=== PATIENT | male | born 1935 | race Caucasian/White ===

== ENCOUNTER 2017-10-03 23:36 | Emergency (ER) | payer OTHER ==
[~2017-10-03] VITALS: Ht 182.9 cm; Wt 93.0 kg
[~2017-10-03 23:36] MED LIST: COUM3TAB; DIGO0.253; FURO1TAB93 PO; GLUCTAB PO; LISI-357 PO; MAGN400T PO; METO25 PO; SYNT25TA; TESTOSTERONE CREAM; VITA50LO SL
[2017-10-04] VITALS: BP 130/70; PULSE 96; RESP 18; TEMP 97.5; O2SAT 99
--- NOTE | 2017-10-04 00:13 | PD ---
HPI Chief Complaint: GI Complaint Time Seen by Provider: 00:12 Travel History International Travel<30 days: No Contact w/Intl Traveler<30days: No Traveled to known affect area: No History of Present Illness HPI The patient is an 82-year-old male that has nausea, vomiting and diarrhea beginning around 9 PM tonight. He has not had any cough. He has not had any fever. He denies any abdominal pain. He takes warfarin for atrial fibrillation. He also is a diabetic and takes metformin. He also takes digoxin for rate control. PFSH Past Medical History Hx Anticoagulant Therapy: No Arthritis: Yes Asthma: No Atrial Fibrillation: Yes Autoimmune Disease: No Heart Rhythm Problems: Yes (A FIB) Cancer: No Cardiovascular Problems: No High Cholesterol: Yes Chemotherapy: No Chest Pain: Yes (SINCE 5 PM) Congestive Heart Failure: Yes (UNSURE OF HISTORY PER PT AND ) COPD: No Cerebrovascular Accident: No Diabetes: No Diminished Hearing: No Endocrine: Yes Gastrointestinal Disorders: Yes GERD: Yes Genitourinary: No Hiatal Hernia: No Hypertension: Yes Immune Disorder: No Kidney Stones: No Musculoskeletal: Yes Neurologic: Yes Psychiatric: No Reproductive: No Respiratory: No Migraines: No Myocardial Infarction: No Radiation Therapy: No Renal Failure: No Seizures: No Sickle Cell Disease: No Sleep Apnea: No Thyroid Disease: Yes Ulcer: Yes Past Surgical History Abdominal Surgery: Yes (LAP CHOL 1991) AICD: No Arteriovenous Shunt: No Cardiac Surgery: Yes (2005) Cholecystectomy: Yes Endocrine Surgery: Yes (80?REMOVED 1964 THYROID) Eye Surgery: Yes (CATARACT REMOVED RT 2 YRS AGO) Insulin Pump: No Joint Replacement: No Oral Surgery: Yes (TEETH 7 YRS AGO) Pacemaker: No Other Surgery: Yes Social History Alcohol Use: No Tobacco Use: No Substance Use: No Allergies-Medications (Allergen,Severity, Reaction): Coded Allergies: No Known Allergies (Verified Adverse Reaction, Unknown, 10/04/17) Reported Meds & Prescriptions Reported Meds & Active Scripts Active Reported Magnesium Citrate 100 Mg Tab 500 Mg PO DAILY PRN Vitamin C (Ascorbic Acid) 250 Mg Tab 1,000 Mg PO DAILY Tylenol Extra Strength (Acetaminophen) 500 Mg Tablet 2 Tab PO BID Potassium Chloride ER (Potassium Chloride) 8 Meq Tab 5 Meq PO HS Coumadin (Warfarin) 5 Mg Tab 5 Mg PO MON, WED, FRI, SAT Warfarin 2.5 Mg Tab 2.5 Mg PO SUN, TUES, THURS Lisinopril 5 Mg Tab 40 Mg PO DAILY Levothyroxine (Levothyroxine Sodium) 25 Mcg Tab 175 Mcg PO DAILY Digoxin 0.25 Mg Tab 0.25 Mg PO DAILY Vitamin B-12 (Cyanocobalamin) 500 Mcg Tab 500 Mcg PO DAILY Review of Systems Except as stated in HPI: all other systems reviewed are Neg Physical Exam Narrative GENERAL: SKIN: Focused skin assessment warm/dry. HEAD: Atraumatic. Normocephalic. EYES: Pupils equal and round. No scleral icterus. No injection or drainage. ENT: No nasal bleeding or discharge. Mucous membranes pink but somewhat dry. NECK: Trachea midline. No JVD. CARDIOVASCULAR: Regular rate and rhythm. No murmur appreciated. RESPIRATORY: No accessory muscle use. Clear to auscultation. Breath sounds equal bilaterally. GASTROINTESTINAL: Abdomen soft, non-tender, nondistended. Hepatic and splenic margins not palpable. MUSCULOSKELETAL: No obvious deformities. No clubbing. No cyanosis. No edema. NEUROLOGICAL: Awake and alert. No obvious cranial nerve deficits. Motor grossly within normal limits. Normal speech. PSYCHIATRIC: Appropriate mood and affect; insight and judgment normal. Data Data Last Documented VS Vital Signs Date Time Temp Pulse Resp B/P (MAP) Pulse Ox O2 Delivery O2 Flow Rate FiO2 10/04/17 01:54 94 16 116/74 (88) 98 Room Air 10/04/17 00:00 97.5 Orders Orders Complete Blood Count With Diff (10/04/17 00:14) Comprehensive Metabolic Panel (10/04/17 00:14) Lipase (10/04/17 00:14) Urinalysis - C+S If Indicated (10/04/17 00:14) Iv Access Insert/Monitor (10/04/17 00:14) Ecg Monitoring (10/04/17 00:14) Oximetry (10/04/17 00:14) Ondansetron Inj (Zofran Inj) (10/04/17 00:15) Sodium Chlor 0.9% 1000 Ml Inj (Ns 1000 M (10/04/17 00:14) Sodium Chloride 0.9% Flush (Ns Flush) (10/04/17 00:15) Digoxin (10/04/17 00:14) Prothrombin Time / Inr (Pt) (10/04/17 00:14) Troponin I (10/04/17 00:14) Sodium Chlor 0.9% 1000 Ml Inj (Ns 1000 M (10/04/17 02:00) Labs Laboratory Tests Test 10/04/17 00:15 10/04/17 01:30 White Blood Count 11.2 TH/MM3 Red Blood Count 4.83 MIL/MM3 Hemoglobin 14.7 GM/DL Hematocrit 45.0 % Mean Corpuscular Volume 93.2 FL Mean Corpuscular Hemoglobin 30.4 PG Mean Corpuscular Hemoglobin Concent 32.6 % Red Cell Distribution Width 13.5 % Platelet Count 224 TH/MM3 Mean Platelet Volume 8.8 FL CBC Comment AUTO DIFF Differential Total Cells Counted 100 Neutrophils % (Manual) 85 % Band Neutrophils % 3 % Lymphocytes % 4 % Monocytes % 5 % Eosinophils % 2 % Basophils % 1 % Neutrophils # (Manual) 9.9 TH/MM3 Differential Comment FINAL DIFF MANUAL Platelet Estimate NORMAL Platelet Morphology Comment NORMAL Prothrombin Time 29.5 SEC Prothromb Time International Ratio 2.9 RATIO Blood Urea Nitrogen 24 MG/DL Creatinine 1.30 MG/DL Random Glucose 186 MG/DL Total Protein 7.9 GM/DL Albumin 3.9 GM/DL Calcium Level 8.8 MG/DL Alkaline Phosphatase 70 U/L Aspartate Amino Transf (AST/SGOT) 22 U/L Alanine Aminotransferase (ALT/SGPT) 31 U/L Total Bilirubin 0.9 MG/DL Sodium Level 136 MEQ/L Potassium Level 3.6 MEQ/L Chloride Level 99 MEQ/L Carbon Dioxide Level 27.2 MEQ/L Anion Gap 10 MEQ/L Estimat Glomerular Filtration Rate 53 ML/MIN Troponin I 0.04 NG/ML Lipase 176 U/L Digoxin Level LESS THAN 0.1 NG/ML Urine Color YELLOW Urine Turbidity CLEAR Urine pH 7.0 Urine Specific [place] 1.019 Urine Protein NEG mg/dL Urine Glucose (UA) NEG mg/dL Urine Ketones 15 mg/dL Urine Occult Blood NEG Urine Nitrite NEG Urine Bilirubin NEG Urine Leukocyte Esterase NEG Urine RBC 0-3 /hpf Urine WBC 0-2 /hpf Microscopic Urinalysis Comment CULT NOT INDICATED MDM Medical Decision Making Medical Screen Exam Complete: Yes Emergency Medical Condition: Yes Medical Record Reviewed: Yes Interpretation(s) The CBC shows a white count of 11,200 but is otherwise normal. The complete metabolic profile shows a BUN of 24, GFR 53, glucose of 186 but is otherwise normal. The troponin I is normal and the anion gap is normal. The digoxin level is less than 0.1 and the lipase is normal. The urinalysis shows 15 ketones but is otherwise normal and culture is not indicated. Differential Diagnosis Viral gastroenteritis, gastritis, electrolyte disorder, dehydration, colitis, bacterial enteritis Narrative Course The patient appears to have a viral gastroenteritis. He also has mild dehydration with the ketones NEG urine and elevated BUN both indicating dehydration. Diagnosis Primary Impression: Viral gastroenteritis Additional Impression: Mild dehydration Additional Instructions: As we discussed, drink clear liquids like Gatorade which replaces not only water but salt. Take the Zofran regularly so that you do not started vomiting. The Zofran is 4 mg tablet every 4-6 hours. Follow-up Thursday with her primary care physician. Med/Other Pt SpecificInfo: Prescription(s) given Scripts Ondansetron (Zofran) 4 Mg Tab 4 MG PO Q6HR Y for NAUSEA OR VOMITING, #28 TAB 0 Refills Prov: Terrence Guzman MD 10/04/17 Disposition: 01 DISCHARGE HOME Condition: Stable Terrence Guzman MD Oct 04, 2017 00:13
[2017-10-04] MEDS ORDERED: SODIUM CHLOR 0.9% 1000 ML INJ 1,000 ML IV SCH (00:14)
[2017-10-04] MEDS ORDERED: ONDANSETRON HCL 4 MG/2 ML VIAL IVP ONE (00:15)
[2017-10-04] MEDS ORDERED: SODIUM CHLORIDE 0.9% FLUSH 10 ML FLUSH IV FLUSH PRN (00:15)
[2017-10-04] MEDS ORDERED: WARF-18 PO (00:28)
[2017-10-04] MEDS ORDERED: LEVO25TA4 PO (00:28)
[2017-10-04] MEDS ORDERED: VITA500T4 PO (00:28)
[2017-10-04] MEDS ORDERED: DIGO0.25 PO (00:28)
[2017-10-04] MEDS ORDERED: LISI-519 PO (00:28)
[2017-10-04] MEDS ORDERED: ALFU10TA2 PO (00:28)
[2017-10-04] MEDS ORDERED: COUM5TAB PO (00:28)
[2017-10-04] MEDS ORDERED: MAGN400T2 PO (00:28)
[2017-10-04] MEDS ORDERED: VITA250T3 PO (00:32)
[2017-10-04] MEDS ORDERED: ACET-822 PO (00:32)
[2017-10-04] MEDS ORDERED: POTA8TAB PO (00:32)
[2017-10-04] MEDS ORDERED: MAGN100T2 PO (00:32)
[2017-10-04 00:36] LABS: HEMOGLOBIN 14.7 GM/DL (13.0-17.0); MEAN CELL VOLUME 93.2 FL (80.0-100.0); MEAN CORPUSCULAR HEMOGLOBIN 30.4 PG (27.0-34.0); MEAN CORPUSCULAR HGB CONC 32.6 % (32.0-36.0); MEAN PLATELET VOLUME 8.8 FL (7.0-11.0); PLATELET COUNT 224 TH/MM3 (150-450); RED BLOOD COUNT 4.83 MIL/MM3 (4.50-5.90); RED CELL DISTRIBUTION WIDTH 13.5 % (11.6-17.2); WHITE BLOOD COUNT 11.2 TH/MM3 (4.0-11.0)
[2017-10-04 00:43] VITALS: PULSE 93
[2017-10-04 01:03] LABS: CHLORIDE 99 MEQ/L (98-107); SODIUM (NA) 136 MEQ/L (136-145)
[2017-10-04 01:07] LABS: CALCIUM 8.8 MG/DL (8.5-10.1)
[2017-10-04 01:08] LABS: ALBUMIN 3.9 GM/DL (3.4-5.0); BICARBONATE 27.2 MEQ/L (21.0-32.0); BLOOD UREA NITROGEN 24 MG/DL (7-18); GLUCOSE,RANDOM 186 MG/DL (74-106); INTERNATIONAL NORMALIZED RATIO 2.9 RATIO; LIPASE 176 U/L (73-393); PROTHROMBIN TIME - PATIENT 29.5 SEC (9.8-11.6)
[2017-10-04 01:11] LABS: ALT (GPT) 31 U/L (12-78); AST (GOT) 22 U/L (15-37); GLOMERULAR FILTRATION RATE 53 ML/MIN (>89)
[2017-10-04 01:12] LABS: TOTAL BILIRUBIN ADULT 0.9 MG/DL (0.2-1.0); TOTAL PROTEIN 7.9 GM/DL (6.4-8.2)
[2017-10-04 01:13] LABS: ALKALINE PHOSPHATASE 70 U/L (45-117)
[2017-10-04 01:16] LABS: TROPONIN I 0.04 NG/ML (0.02-0.05)
[2017-10-04 01:22] LABS: BANDS 3 % (0-6); BASOPHILS 1 % (0-2); LYMPHOCYTES 4 % (9-44); MONOCYTES 5 % (0-8); NEUTROPHIL # MANUAL DIFF 9.9 TH/MM3 (1.8-7.7); POLYS (SEG NEUTROPHILS) 85 % (16-70)
[2017-10-04 01:38] LABS: BILIRUBIN, URINE NEG (NEG); BLOOD, URINE NEG (NEG); GLUCOSE,URINE NEG (NEG); KETONE, URINE 15 mg/dL (NEG); NITRITE,URINE NEG (NEG); URINE LEUKOCYTE ESTERASE NEG (NEG)
[2017-10-04 01:42] LABS: URINE COLOR YELLOW (YELLW/STRAW)
[2017-10-04 01:43] LABS: RBC, URINE 0-3 /hpf (0-3); WBC, URINE 0-2 /hpf (0-5)
[2017-10-04 01:49] LABS: DIGOXIN LESS THAN 0.1 NG/ML (0.8-2.0)
[2017-10-04] MEDS: SODIUM CHLOR 0.9% 1000 ML INJ 1,000 ML IV SCH ×2 (01:53→02:13)
[2017-10-04 01:54] VITALS: BP 116/74; PULSE 94; RESP 16; O2SAT 98
[2017-10-04] MEDS ORDERED: ZOFR4TAB PO (02:11)
== END 2017-10-04 03:10 | disposition home or self-care (01) ==
LOC: PHED 23:36
DX: A08.4 Viral intestinal infection, unspecified (principal); E86.0 Dehydration; R19.7 Diarrhea, unspecified; I48.91 Unspecified atrial fibrillation; E11.9 Type 2 diabetes mellitus without complications; I11.0 Hypertensive heart disease with heart failure; Z79.01 Long term (current) use of anticoagulants
CPT/HCPCS: 80053; 80162; 81001; 83690; 84484; 85007; 85027; 85610; 96361; 96374; 99284; J2405; J7030

== ENCOUNTER 2017-10-31 11:36 | Emergency (ER) | payer OTHER ==
[~2017-10-31] VITALS: Ht 182.9 cm; Wt 96.0 kg
[~2017-10-31 11:36] MED LIST changes: +ACET-822 PO; -COUM3TAB; +COUM5TAB PO; +DIGO0.25 PO; -DIGO0.253; -FURO1TAB93 PO; -GLUCTAB PO; +LEVO25TA4 PO; -LISI-357 PO; +LISI-519 PO; +MAGN100T2 PO; -MAGN400T PO; -METO25 PO; +POTA8TAB PO; -SYNT25TA; -TESTOSTERONE CREAM; +VITA250T3 PO; +VITA500T4 PO; -VITA50LO SL; +WARF-18 PO; +ZOFR4TAB PO
[2017-10-31 12:00] VITALS: BP 168/74; PULSE 54; RESP 16; TEMP 97.9; O2SAT 98
[2017-10-31] MEDS ORDERED: ATOR40TA16 PO (13:09)
--- NOTE | 2017-10-31 13:24 | PD ---
HPI Chief Complaint: Laceration/Skin Injury Time Seen by Provider: 13:12 Travel History International Travel<30 days: No Contact w/Intl Traveler<30days: No Traveled to known affect area: No History of Present Illness HPI 82-year-old male presents to the emergency department for evaluation after he tripped and fell this morning. He states he is walking into a restaurant when he tripped over the rug and fell. He denies hitting his head or any LOC. His at bedside witnessed the fall and states that he did not hit his head. Patient denies any neck pain or back pain. No chest pain or trauma pain. No nausea, vomiting, diarrhea. No hip or pelvic pain. Patient complains of right knee, right elbow, right shoulder, left hand pain. He has a skin tear to the right elbow. Patient is on Coumadin for A. fib. However, he adamantly denies hitting his head. He states he has his INR checked frequently and it was normal. Patient states the pain is worse with ambulation, movement. Pain is relieved with lying still. He has an appointment with orthopedist on Thursday for right shoulder pain. Moderate severity. Current pain is 2/10, 8/10 with movement. Patient states his tetanus immunization is up-to-date. PFSH Past Medical History Hx Anticoagulant Therapy: Yes (WARFARIN) Arthritis: Yes Asthma: No Atrial Fibrillation: Yes Autoimmune Disease: No Heart Rhythm Problems: Yes (A FIB) Cancer: Yes (SKIN) Cardiac Catheterization: Yes Cardiovascular Problems: No High Cholesterol: Yes Chemotherapy: No Chest Pain: Yes Congestive Heart Failure: Yes (PT DENIES) COPD: No Cerebrovascular Accident: No Diabetes: Yes (DIET CONTROLLED NOW) Patient Takes Glucophage: No Diminished Hearing: No Endocrine: Yes Gastrointestinal Disorders: Yes (GALLSTONES) GERD: Yes Genitourinary: No Hiatal Hernia: No Hypertension: Yes Immune Disorder: No Implanted Vascular Access Dvce: Yes Kidney Stones: No Musculoskeletal: Yes Neurologic: Yes Psychiatric: No Reproductive: No Respiratory: No Migraines: No Myocardial Infarction: No Pneumonia: Yes Radiation Therapy: No Renal Failure: No Seizures: No Sickle Cell Disease: No Sleep Apnea: No Thyroid Disease: Yes Ulcer: Yes Tetanus Vaccination: < 5 Years Influenza Vaccination: Yes Past Surgical History Abdominal Surgery: Yes (LAP CHOL 1991) AICD: No Arteriovenous Shunt: No Cardiac Surgery: Yes (2005) Cholecystectomy: Yes Endocrine Surgery: Yes (80?REMOVED 1963 THYROID) Eye Surgery: Yes (LEFT CATARACT) Insulin Pump: No Joint Replacement: Yes (RIGHT KNEE) Oral Surgery: Yes (TOOTH EXTRACTIONS) Pacemaker: No Other Surgery: Yes Social History Alcohol Use: No Tobacco Use: No (QUIT 1957) Substance Use: No Allergies-Medications (Allergen,Severity, Reaction): Coded Allergies: No Known Allergies (Verified Adverse Reaction, Unknown, 10/04/17) Reported Meds & Prescriptions Reported Meds & Active Scripts Active Reported Atorvastatin (Atorvastatin Calcium) 40 Mg Tab 40 Mg PO HS Magnesium Citrate 100 Mg Tab 500 Mg PO DAILY PRN Vitamin C (Ascorbic Acid) 250 Mg Tab 1,000 Mg PO DAILY Tylenol Extra Strength (Acetaminophen) 500 Mg Tablet 2 Tab PO BID Coumadin (Warfarin) 5 Mg Tab 5 Mg PO MON, WED, FRI, SAT Warfarin 2.5 Mg Tab 2.5 Mg PO SUN, TUES, THURS Levothyroxine (Levothyroxine Sodium) 25 Mcg Tab 175 Mcg PO DAILY Vitamin B-12 (Cyanocobalamin) 500 Mcg Tab 500 Mcg PO DAILY Review of Systems Except as stated in HPI: all other systems reviewed are Neg Physical Exam Narrative GENERAL: Well-nourished, well-developed elderly male patient, Afebrile. SKIN: Focused skin assessment warm/dry. Patient has skin tear noted to right dorsal elbow. He also has ecchymosis to right anterior knee and left volar thumb. HEAD: Normocephalic. Atraumatic. EYES: No scleral icterus. No injection or drainage. NECK: Supple, trachea midline. No JVD or lymphadenopathy. CARDIOVASCULAR: Regular rate and rhythm without murmurs, gallops, or rubs. Bilateral radial and pedal pulses are 2+. RESPIRATORY: Breath sounds equal bilaterally. No accessory muscle use. Lungs sounds are clear to auscultation. GASTROINTESTINAL: Abdomen soft, non-tender, nondistended. MUSCULOSKELETAL: No cyanosis, or edema. Patient's tenderness over right anterior knee, reduced flexion due to pain. He has full flexion-extension of right elbow. He is tenderness to palpation over the right shoulder was reduced range of motion. BACK: Nontender without obvious deformity. No CVA tenderness. No midline spinal tenderness. Data Data Last Documented VS Vital Signs Date Time Temp Pulse Resp B/P (MAP) Pulse Ox O2 Delivery O2 Flow Rate FiO2 2/10/18 12:00 97.9 54 16 168/74 (105) 98 Orders Orders Knee, Complete (4vws) (10/31/17 ) Elbow, Complete (4 Vws) (10/31/17 ) Shoulder, Complete (>2vws) (10/31/17 ) Hand, Complete ([id number]) (10/31/17 ) Wound Care (10/31/17 13:18) Splint Or Brace Apply/Monitor (10/31/17 16:06) MDM Medical Decision Making Medical Screen Exam Complete: Yes Emergency Medical Condition: Yes Medical Record Reviewed: Yes Interpretation(s) Last Impressions Shoulder X-Ray 10/31/17 0000 Signed Impressions: Service Date/Time: Tuesday, October 31, 2017 14:43 - CONCLUSION: No acute bony injury. Frantz Esquivel MD Knee X-Ray 10/31/17 0000 Signed Impressions: Service Date/Time: Tuesday, October 31, 2017 14:38 - CONCLUSION: Total knee prosthesis well seated Frantz Esquivel MD Hand X-Ray 10/31/17 0000 Signed Impressions: Service Date/Time: Tuesday, October 31, 2017 14:29 - CONCLUSION: No acute bony injury or dislocation. 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 X-ray of the right knee, right elbow, right shoulder, left hand are ordered and pending. Wound care is completed on skin tear to right elbow. He declines pain medication at this time. X-ray of the right knee shows total knee prosthesis well-seated. X-ray of the right shoulder shows no acute bony injury. X-ray of the right elbow shows no acute bony injury. X-ray of the left hand shows no acute bony injury. Patient is provided Eloy bandage to right knee. He is instructed on proper wound care. He has an orthopedist appointment on Thursday with Dr. Espinosa. He will follow-up. The patient was discharged in stable condition with instructions, including return instructions and follow up instructions. Diagnosis Primary Impression: Skin tear of elbow without complication Qualified Codes: S51.011A - Laceration without foreign body of right elbow, initial encounter Additional Impressions: Knee contusion Qualified Codes: S80.01XA - Contusion of right knee, initial encounter Thumb contusion Qualified Codes: S60.011A - Contusion of right thumb without damage to nail, initial encounter Right shoulder pain Qualified Codes: M25.511 - Pain in right shoulder Referrals: Orthopedist Primary Care Physician Patient Instructions: Contusion in Adults (ED), General Instructions, Skin Tear (ED) Additional Instructions: Keep skin tear clean and dry. Take [id number] Tylenol as needed for mild to moderate pain. Take Spade as instructed as needed for moderate to severe pain. Caution this can make you drowsy so do not drive after taking. Follow-up with orthopedist as already scheduled. Return to the emergency department for any acute worsening of symptoms. Med/Other Pt SpecificInfo: Prescription(s) given Scripts Hydrocodone-Acetaminophen (Spade) 5 Mg-325 Mg Tab 1 TAB PO Q6H Y for PAIN, #8 TAB 0 Refills Prov: Aliya Pineda 10/31/17 Disposition: 01 DISCHARGE HOME Condition: Stable Aliya Pineda Oct 31, 2017 13:24
--- NOTE | 2017-10-31 15:51 | RADRPT ---
EXAM DATE/TIME: 10/31/2017 14:23 [facility] COMPARISON: No previous studies available for comparison. INDICATIONS : Fell, right elbow pain MEDICAL HISTORY : None. SURGICAL HISTORY : Total knee replacement, right. ENCOUNTER: Initial ACUITY: 1 day PAIN SCORE: 8/10 LOCATION: Right elbow FINDINGS: The bony structures are osteopenic or osteoporotic with corticated calcifications posterior to the di stal humerus and a small olecranon spur. There are degenerative changes of the elbow joint. No defini te fracture or dislocation is appreciated. 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 This report was verified electronically.
--- NOTE | 2017-10-31 15:54 | RADRPT ---
EXAM DATE/TIME: 10/31/2017 14:29 [facility] COMPARISON: No previous studies available for comparison. INDICATIONS : Fell, left hand pain MEDICAL HISTORY : None. SURGICAL HISTORY : Total knee replacement, right. Left wrist surgery ENCOUNTER: Initial ACUITY: 1 day PAIN SCORE: 8/10 LOCATION: Left hand FINDINGS: The bony structures are osteopenic or osteoporotic. Osteoarthritic changes are noted of the PIP and P IP joints of the fingers. There is evidence of prior surgery with a circular plate and dorsal to the mid and lateral roll of the carpal bones with screws into these carpal bones apparent fusion. The int erpediculate is essentially absent. There is degenerative change of the first metacarpal multangular articulation. There are vascular calcifications in the radial artery. No acute bony injury dislocatio n noted. CONCLUSION: No acute bony injury or dislocation. Prior surgery as described with osteoarthritis and osteoporo sis or osteopenia Frantz Esquivel MD on October 31, 2017 at 15:49 Board Certified Radiologist. This report was verified electronically.
--- NOTE | 2017-10-31 15:55 | RADRPT ---
EXAM DATE/TIME: 10/31/2017 14:38 [facility] COMPARISON: No previous studies available for comparison. INDICATIONS : Fell , has right knee pain MEDICAL HISTORY : None. SURGICAL HISTORY : Total knee replacement, right. ENCOUNTER: Initial ACUITY: 1 day PAIN SCORE: 8/10 LOCATION: Right knee FINDINGS: Total knee prosthesis is in place well seated. There is no evidence of fracture or dislocation. CONCLUSION: Total knee prosthesis well seated Frantz Esquivel MD on October 31, 2017 at 15:52 Board Certified Radiologist. This report was verified electronically.
--- NOTE | 2017-10-31 15:57 | RADRPT ---
EXAM DATE/TIME: 10/31/2017 14:43 [facility] COMPARISON: No previous studies available for comparison. INDICATIONS : Fell, right shoulder pain, limited ROM MEDICAL HISTORY : None. SURGICAL HISTORY : Total knee replacement, right. ENCOUNTER: Initial ACUITY: 1 day PAIN SCORE: 8/10 LOCATION: Right shoulder FINDINGS: Multiple view examination of the right shoulder demonstrates no evidence of fracture or dislocation. The glenohumeral and acromioclavicular joints are maintained. There is normal range of motion betwe en internal and external rotation. Bony mineralization is normal. Degenerative changes are noted of the a.c. joint minimally the glenohumeral joint. CONCLUSION: No acute bony injury. Frantz Esquivel MD on October 31, 2017 at 15:54 Board Certified Radiologist. This report was verified electronically.
[2017-10-31] MEDS ORDERED: NORC5TAB PO (16:09)
== END 2017-10-31 16:27 | disposition home or self-care (01) ==
LOC: PHED 11:36 → PHEFT 16:27
DX: S51.011A Laceration without foreign body of right elbow, initial encounter (principal); S80.01XA Contusion of right knee, initial encounter; S60.011A Contusion of right thumb without damage to nail, initial encounter; M25.511 Pain in right shoulder; I48.91 Unspecified atrial fibrillation; E11.9 Type 2 diabetes mellitus without complications; I10 Essential (primary) hypertension; W01.0XXA Fall on same level from slipping, tripping and stumbling without subsequent striking against object, initial encounter; Y93.01 Activity, walking, marching and hiking; Y92.511 Restaurant or cafe as the place of occurrence of the external cause; Z79.01 Long term (current) use of anticoagulants
CPT/HCPCS: 73030; 73080; 73130; 73564; 99284

== ENCOUNTER 2018-03-10 16:29 | Emergency (ER) | payer OTHER ==
[~2018-03-10] VITALS: Ht 188 cm; Wt 98.0 kg
[~2018-03-10 16:29] MED LIST changes: +ATOR40TA16 PO; -DIGO0.25 PO; -LISI-519 PO; +NORC5TAB PO; -POTA8TAB PO; -ZOFR4TAB PO
[2018-03-10 16:33] VITALS: BP 156/74; PULSE 70; RESP 16; TEMP 98.5; O2SAT 96
--- NOTE | 2018-03-10 16:51 | PD ---
HPI Chief Complaint: Musculoskeletal Complaint Time Seen by Provider: 16:40 Travel History International Travel<30 days: No Contact w/Intl Traveler<30days: No Traveled to known affect area: No History of Present Illness HPI 82-year-old male presents to the emergency department for evaluation of left ankle pain that has been ongoing for approximately 3 weeks, but worsened today as he was on his feet more. Patient has history of fusion to the left ankle and cannot move the left ankle. Patient states he saw his primary care physician at the [place] approximately 2 weeks ago who told him to follow with a foot doctor. However, he has not yet been able to see the [facility]enter ship. Current pain is 5/10, without radiation, aching and throbbing. Patient denies any known traumatic injury. He has no other symptoms or complaints at this time. Mild severity. PFSH Past Medical History Hx Anticoagulant Therapy: Yes (WARFARIN) Arthritis: Yes Asthma: No Atrial Fibrillation: Yes Autoimmune Disease: No Heart Rhythm Problems: Yes (A FIB) Cancer: Yes (SKIN) Cardiac Catheterization: Yes Cardiovascular Problems: No High Cholesterol: Yes Chemotherapy: No Chest Pain: Yes Congestive Heart Failure: Yes COPD: No Cerebrovascular Accident: No Diabetes: Yes (DIET CONTROLLED NOW) Patient Takes Glucophage: No Diminished Hearing: No Endocrine: Yes Gastrointestinal Disorders: Yes (GALLSTONES) GERD: Yes Genitourinary: No Hiatal Hernia: No Hypertension: Yes Immune Disorder: No Implanted Vascular Access Dvce: Yes Kidney Stones: No Musculoskeletal: Yes Neurologic: Yes Psychiatric: No Reproductive: No Respiratory: No Migraines: No Myocardial Infarction: No Pneumonia: Yes Radiation Therapy: No Renal Failure: No Seizures: No Sickle Cell Disease: No Sleep Apnea: No Thyroid Disease: Yes Ulcer: Yes Influenza Vaccination: Yes ?: Not Past Surgical History Abdominal Surgery: Yes (LAP CHOL 1991) AICD: No Arteriovenous Shunt: No Cardiac Surgery: Yes (2005) Cholecystectomy: Yes Endocrine Surgery: Yes (REMOVED THYROID) Eye Surgery: Yes (CATARACT) Insulin Pump: No Joint Replacement: Yes (RIGHT KNEE) Oral Surgery: Yes (TOOTH EXTRACTIONS) Pacemaker: No Other Surgery: Yes Social History Alcohol Use: No Tobacco Use: No (QUIT 1957) Substance Use: No Allergies-Medications (Allergen,Severity, Reaction): Coded Allergies: No Known Allergies (Verified Adverse Reaction, Unknown, 03/10/18) Reported Meds & Prescriptions Reported Meds & Active Scripts Active [place] (Hydrocodone-Acetaminophen) 5 Mg-325 Mg Tab 1 Tab PO Q6H PRN Reported Atorvastatin (Atorvastatin Calcium) 40 Mg Tab 40 Mg PO HS Magnesium Citrate 100 Mg Tab 500 Mg PO DAILY PRN Vitamin C (Ascorbic Acid) 250 Mg Tab 1,000 Mg PO DAILY Tylenol Extra Strength (Acetaminophen) 500 Mg Tablet 2 Tab PO BID Coumadin (Warfarin) 5 Mg Tab 5 Mg PO MON, WED, FRI, SAT Warfarin 2.5 Mg Tab 2.5 Mg PO SUN, , THURS Levothyroxine (Levothyroxine Sodium) 25 Mcg Tab 175 Mcg PO DAILY Vitamin B-12 (Cyanocobalamin) 500 Mcg Tab 500 Mcg PO DAILY Review of Systems Except as stated in HPI: all other systems reviewed are Neg Physical Exam Narrative GENERAL: Well-nourished, well-developed elderly male patient, afebrile. SKIN: Focused skin assessment warm/dry. No erythema or warmth over left ankle. HEAD: Normocephalic. Atraumatic. EYES: No scleral icterus. No injection or drainage. NECK: Supple, trachea midline. No JVD or lymphadenopathy. CARDIOVASCULAR: Left pedal pulse is 2+. RESPIRATORY: No accessory muscle use. MUSCULOSKELETAL: No cyanosis. Patient has tenderness over left lower lateral ankle. Patient has chronic deformity of the left ankle due to previous surgery. BACK: Nontender without obvious deformity. No CVA tenderness. Data Data Last Documented VS Vital Signs Date Time Temp Pulse Resp B/P (MAP) Pulse Ox O2 Delivery O2 Flow Rate FiO2 03/10/18 16:33 98.5 70 16 156/74 (101) 96 Orders Orders Ankle, Complete ([id number]) (03/10/18 ) Acetaminophen (Tylenol) (03/10/18 17:00) Ice/Cold Pack (03/10/18 16:47) MDM Medical Decision Making Medical Screen Exam Complete: Yes Emergency Medical Condition: Yes Medical Record Reviewed: Yes Interpretation(s) Last Impressions Ankle X-Ray 03/10/18 0000 Signed Impressions: CONCLUSION: Chronic change with surgical hardware and prior distal tibia and fibular fractu res. There is also chronic fusion at the tibiotalar joint. Differential Diagnosis Chronic ankle pain versus sprain versus hardware failure versus fracture versus septic joint Narrative Course 82-year-old male presents to the emergency department for evaluation of left ankle pain that has been ongoing for several weeks, but worsened today. He has no erythema or warmth over the left ankle. He can chronically not move his left ankle and this is normal for him. There is no evidence of septic joint on exam. X-ray of the left ankle is ordered and pending. Ice pack is applied. Patient is given Tylenol 650 mg p.o. X-ray of the left ankle shows chronic change with surgical hardware and prior distal tibia and fibular fractures. There is also chronic fusion at the tibiotalar joint. Patient is provided Eloy bandage. He uses a walker at home. He is to take Tylenol every 4 hours as needed for pain and use ice. Patient scheduled follow- up orthopedist. He will be given the name and number of our orthopedist information systems director today. The patient was discharged in stable condition with instructions, including return instructions and follow up instructions. Diagnosis Primary Impression: Left ankle pain Qualified Codes: M25.572 - Pain in left ankle and joints of left foot; G89.29 - Other chronic pain Referrals: Cash Harrington MD call for appointment Patient Instructions: Ankle Sprain (ED), General Instructions Additional Instructions: Wear Eloy bandage and use her walker. Tylenol every 4 hours as needed for pain. Follow up with orthopedist. Dr. Harrington is the orthopedist information systems director today. Return to the emergency department for any acute worsening of symptoms. Med/Other Pt SpecificInfo: No Change to Meds Disposition: 01 DISCHARGE HOME Condition: Stable Aliya Pineda Mar 10, 2018 16:51
[2018-03-10] MEDS ORDERED: ACETAMINOPHEN 325 MG TAB PO ONE (17:00)
--- NOTE | 2018-03-10 17:53 | RADRPT ---
EXAM DATE: 03/10/2018 5:30 PM EDT AGE/SEX: 82 years / Male INDICATIONS: Left ankle pain starting today with no known injury CLINICAL DATA: This is the patient's initial encounter. Patient reports that signs and symptoms have been present for 1 day and indicates a pain score of 9/10. MEDICAL/SURGICAL HISTORY: . Left distal tib/fib fracture . ORIF left tib/fib COMPARISON: No prior exams available for comparison. FINDINGS: There is an intramedullary nancy seen through the tibia. Old healed fracture is seen of the distal tibi al shaft with exuberant chronic talus. There is evidence of a distal fibular fracture with callus but incomplete fusion. There does appear to be fusion at the ankle joint between the distal tibia and th e talus. There is superficial soft tissue swelling seen in the lower leg and ankle region. CONCLUSION: Chronic change with surgical hardware and prior distal tibia and fibular fractures. There is also chr onic fusion at the tibiotalar joint. Electronically signed by: Baron Jason MD 03/10/2018 5:51 PM EDT
== END 2018-03-10 18:25 | disposition home or self-care (01) ==
LOC: PHEFT 16:29
DX: M25.572 Pain in left ankle and joints of left foot (principal); G89.29 Other chronic pain; I11.0 Hypertensive heart disease with heart failure; I48.91 Unspecified atrial fibrillation; I50.9 Heart failure, unspecified; E78.00 Pure hypercholesterolemia, unspecified; E11.9 Type 2 diabetes mellitus without complications; E07.9 Disorder of thyroid, unspecified; M19.90 Unspecified osteoarthritis, unspecified site; Z85.828 Personal history of other malignant neoplasm of skin; Z79.01 Long term (current) use of anticoagulants; Z79.899 Other long term (current) drug therapy
CPT/HCPCS: 73610; 99283